=== PATIENT | female | born 1970 | race Caucasian/White ===

== ENCOUNTER 2017-07-16 08:50 | Day surgery (SDC) | payer BC ==
[2017-07-15 15:05] VITALS: BMI 25.1
[2017-07-16] MEDS ORDERED: ePHEDrine SULFATE 50 MG/1 ML AMPULE ONE (10:26)
[2017-07-16] MEDS ORDERED: LIDOCAINE HCL/PF 2% SDV 5ML VIAL ONE (10:26)
[2017-07-16] MEDS ORDERED: PROPOFOL 20 ML ONE (10:26)
[2017-07-16 10:58] VITALS: TEMP 97.5
[2017-07-16 12:06] VITALS: BP 113/69; PULSE 68
--- NOTE | 2017-07-17 16:08 | PATH ---
Surgical Pathology Report Patient Name: MORAIMA LAURA [facility]. Rec. #: [id number] /Age/Gender: 1970 (Age: 46) / F Account: [id number] Location: U-ENDOSCOPY Taken: 07/16/2017 Received: 07/16/2017 Reported: 07/17/2017 Physicians: Long White M.D. Specimen(s) Received BX RECTUM Clinical History History of colitis Ulcerative colitis Final Diagnosis RECTUM, BIOPSY: COLONIC MUCOSA WITH CHRONIC ACTIVE COLITIS, MODERATE ACTIVITY. NO GRANULOMA OR DYSPLASIA IDENTIFIED. Comments Suggest clinical/ radiologic correlation. Electronically Signed Estefanía Ramirez M.D. Gross Description Received in formalin, labeled "biopsy rectum" are 2 galvez, irregular portions of soft tissue measuring 0.3 and 0.4 cm. in greatest dimension. The specimens are submitted in toto in one cassette. /07/16/201707/16/2017
== END 2017-07-16 12:06 | disposition home or self-care (01) ==
LOC: JASU-ENDO 08:50
PROVIDERS: ATTEND Internal Medicine Gastroenterology
PROC: 0DBP8ZX Excision of Rectum, Via Natural or Artificial Opening Endoscopic, Diagnostic (ICD-10-PCS; principal; 2017-07-16 09:30)
DX: K51.90 Ulcerative colitis, unspecified, without complications (principal); K62.89 Other specified diseases of anus and rectum; Z98.0 Intestinal bypass and anastomosis status
CPT/HCPCS: 84703; 88305-TC